=== PATIENT | male | born 1955 | race Caucasian/White ===

== ENCOUNTER 2017-05-09 08:27 | Day surgery (SDC) | payer OTHER ==
[2017-05-09] MEDS ORDERED: PLEASE ENTER HEIGHT AND WEIGHT MC SCH (09:00)
[2017-05-09] MEDS ORDERED: LIDOCAINE 2%, 20ML SQ PRN (09:00)
[2017-05-09] MEDS ORDERED: LIDOCAINE 2% 100MG/5ML SYRINGE ONE (09:21)
[2017-05-09] MEDS ORDERED: LIDOCAINE 2%, 20ML ONE (09:22)
== END 2017-05-09 09:55 ==
LOC: CACL 08:27
PROVIDERS: ATTEND Internal Medicine Cardiovascular Disease
DX: R55 Syncope and collapse (principal); I10 Essential (primary) hypertension; E11.9 Type 2 diabetes mellitus without complications; Z88.0 Allergy status to penicillin
CPT/HCPCS: 33282; C1764; J3490

== ENCOUNTER 2017-10-21 01:51 | Emergency (ER) | payer OTHER ==
[~2017-10-21] VITALS: Ht 188 cm; Wt 125.0 kg
[2017-10-21] MEDS ORDERED: OXYMETAZOLINE NASAL SPRAY 0.05%, 15ML ONE (02:08)
[2017-10-21] MEDS ORDERED: BACITRACIN ZINC OINT 500U/GM, 0.9 GM ONE (02:08)
[2017-10-21] MEDS ORDERED: METF500T4 PO (02:09)
[2017-10-21] MEDS ORDERED: AMLO5TAB4 PO (02:09)
[2017-10-21] MEDS ORDERED: ASPI-515 PO (02:09)
[2017-10-21] MEDS ORDERED: LISI1TAB7 PO (02:09)
[2017-10-21] MEDS ORDERED: ATEN100T PO (02:09)
[2017-10-21] MEDS ORDERED: SIMV5TAB5 PO (02:09)
[2017-10-21] MEDS ORDERED: RESV250C2 PO (02:09)
[2017-10-21] MEDS ORDERED: ONDANSETRON ODT 4 MG ONE (03:20)
[2017-10-21] MEDS ORDERED: ONDANSETRON ODT 4 MG PO ONE (03:30)
[2017-10-21 04:22] VITALS: BP 110/77
== END 2017-10-21 04:25 | disposition home or self-care (01) ==
LOC: ED 03:23
DX: R04.0 Epistaxis (principal); I10 Essential (primary) hypertension; E11.9 Type 2 diabetes mellitus without complications
CPT/HCPCS: 99283; Q0162

== ENCOUNTER 2021-01-03 06:51 | Day surgery (SDC) | payer OTHER ==
[~2021-01-03] VITALS: Ht 185.4 cm; Wt 115.9 kg
[~2021-01-03 06:51] MED LIST: AMLO5TAB4 PO; ASPI-963 PO; ATEN100T PO; LISI1TAB20 PO; METF500T17 PO; RESV250C2 PO; SIMV5TAB14 PO
[2021-01-03] MEDS ORDERED: LIDOCAINE 2%, 20ML ONE ×2 (07:20→07:52)
== END 2021-01-03 08:05 | disposition home or self-care (01) ==
LOC: CACL 06:51
PROVIDERS: ATTEND Internal Medicine Cardiovascular Disease
DX: Z45.09 Encounter for adjustment and management of other cardiac device (principal); R55 Syncope and collapse; I10 Essential (primary) hypertension; E11.9 Type 2 diabetes mellitus without complications; E78.5 Hyperlipidemia, unspecified; K76.0 Fatty (change of) liver, not elsewhere classified; I60.7 Nontraumatic subarachnoid hemorrhage from unspecified intracranial artery; E66.9 Obesity, unspecified; F17.290 Nicotine dependence, other tobacco product, uncomplicated; Z68.33 Body mass index [BMI] 33.0-33.9, adult; Z79.899 Other long term (current) drug therapy; Z88.0 Allergy status to penicillin; Z96.651 Presence of right artificial knee joint; Z98.890 Other specified postprocedural states; Z82.3 Family history of stroke; Z80.8 Family history of malignant neoplasm of other organs or systems
CPT/HCPCS: 33285; 33286; C1764